=== PATIENT | female | born 1995 | race Two or more races ===

== ENCOUNTER 2020-05-22 16:18 | Inpatient (IN) | payer OTHER ==
--- NOTE | 2020-05-22 17:03 | HP ---
Past Medical History - Admission History of Present Illness: 24 yo @ 38 2/7 wks by first trimester ultrasound, EDC 06/03/2020 complicated by: 1. Covid + ~ 20 wks s/p ID consult, with subsequent negative covid testing 2. Anemia - most recent H/H at 24 wks, 9.6 / 28.0 Patient presents with chief complaint of leakage of clear fluid at 3PM. She denies contractions or vaginal bleeding, endorses movement. She was examined and found to be grossly ruptured and 2 cm dilated. 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: CVA Cardiovascular: No: HTN Pulmonary: Yes: Asthma Gastrointestinal: No: GERD ...: 1 ...Para: 0 ...EDC by Dates: 06/03/20 Heme/Onc: Yes: Anemia - Past Surgical History Hx Myomectomy: No Hx Transabdominal Cerclage: No Additional Surgical History: Jaw surgery Home Medications - Allergies Allergies/Adverse Reactions: Allergies Allergy/AdvReac Type Severity Reaction Status Date / Time No Known Allergies Allergy Verified 05/22/20 17:03 Family Medical History Family History: Denies Review of Systems - Review of Systems Constitutional: reports: No Symptoms HENT: reports: No Symptoms Neck: reports: No Symptoms Cardiovascular: reports: No Symptoms Respiratory: reports: No Symptoms Musculoskeletal: reports: No Symptoms Neurological: reports: No Symptoms Endocrine: reports: No Symptoms Psychiatric: reports: No Symptoms Physical Exam - Maternity Constitutional: Yes: Well Nourished, No Distress, Calm Cardiovascular: Yes: Regular Rate and Rhythm Lungs: Clear to auscultation - Abdominal Exam/OB Presentation: Vertex Contractions: No Heart Rate (range): 155 Category: I Accelerations: Non-Uniform Decelerations: None - Vaginal Exam/OB Vaginal Bleeding: No Dilatation (cm): 2 Effacement (%): 0 Amniotic Membrane Status: Ruptured Nitrazine Test: Positive Amniotic Fluid: Yes: Clear Presentation: Vertex/Position Station: -4 - Physical Exam Edema: No Psychiatric: Yes: Alert, Oriented - Labs Lab Results: PNL: A positive, antibody negative; RPR NR; HIV neg x 2; Hbs ag neg; HCV neg; Hg jeremiah AA; GCT WNL; GBS neg; Seq screen neg ; most recent ultrasound 35 wks 2777g (6 lb 2 oz; 50%ile) Hemorrhage Risk Assessment - Risk Factors Medium Risk Factors: Yes: None High Risk Factors: Yes: None Risk Score: 1 Risk Level: Medium Risk Assessment/Plan 24 yo @ 38+ wks PROM 1. Admit to L&D 2. Routine labs collected and sent, covid swab obtained 3. Discussed PROM, no contractions. Reviewed options: Observation vs pitocin augmentation. Reviewed risk of augmentation including but not limited to intolerance of labor, need for delivery. Discussed risk of infection. She expressed understanding. Desires pitocin augmentation. 4. GBS negative 5. Will offer pain medication upon patient request 6. Currently category I FHT, will monitor 7. Will continue expectant management.
[2020-05-22] MEDS: DEXTROSE 5%-LACTATED RINGERS 1,000 ML IV SCH (17:30)
[2020-05-22 18:17] VITALS: BMI 29.2
[2020-05-22] MEDS ORDERED: OXYTOCIN 30 UNITS in 0.9% NS 30 UNIT/500 ML INFUS.BAG IVPB ONE (18:18)
[2020-05-22] MEDS: OXYTOCIN 30 UNITS in 0.9% NS 30 UNIT/500 ML INFUS.BAG IVPB SCH (18:20)
[2020-05-22 18:22] LABS: BASO % 0.2 % (0-2.0); EOS % 0.4 % (0-4.5); HEMATOCRIT 29.4 % (32.4-45.2); HEMOGLOBIN 9.8 GM/dL (10.7-15.3); LYMPH % 21.2 % (8-40); MCH 28.3 pg (25.7-33.7); MCHC 33.4 g/dl (32.0-36.0); MEAN CELL VOLUME 84.8 fl (80-96); MEAN PLT VOLUME 10.9 fl (7.5-11.1); NEUT % 70.2 % (42.8-82.8); PLATELET COUNT 200 K/MM3 (134-434); RBC 3.47 M/mm3 (3.60-5.2); RDW 14.4 % (11.6-15.6)
[2020-05-22 18:32] LABS: INR 0.96 (0.83-1.09); PROTHROMBIN TIME (PATIENT) 11.3 SEC (9.7-13.0)
[2020-05-22 18:35] LABS: ACTIVATED PTT 24.4 SECONDS (25.2-36.5)
[2020-05-22 18:49] LABS: BLOOD UREA NITROGEN 10.7 mg/dL (7-18); CREATININE 0.6 mg/dL (0.55-1.3); POTASSIUM 4.4 mmol/L (3.5-5.1)
[2020-05-23] MEDS ORDERED: FENTANYL/BUPIVACAINE/NS/PF - PCEA - 50 ML DISP.SYRIN EP ONE (00:17)
[2020-05-23] MEDS ORDERED: PCA PUMP NR ONE (00:18)
[2020-05-23] MEDS ORDERED: NALOXONE HCL 0.4 MG/ML VIAL IVPUSH PRN (00:25)
[2020-05-23] MEDS ORDERED: FENTANYL/BUPIVACAINE/NS/PF - PCEA - 50 ML DISP.SYRIN EP SCH (00:30)
[2020-05-23] MEDS ORDERED: BUPIVACAINE HCL/PF 0.25% (2.5MG/ML) 10 ML VIAL ONE (00:31)
[2020-05-23] MEDS ORDERED: OXYTOCIN 20 UNITS in 0.9% NS 20 UNIT/1,000 ML INFUS.BAG IV ONE ×2 (05:09→07:12)
--- NOTE | 2020-05-23 06:18 | PN ---
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 Weight and length unknown at this time. Head delivered spontaneously, right compound hand noted, nuchal cord noted and reduced, followed by shoulders and body without difficulty. Infant with spontaneous cry and placed on mother's abdomen. Nose and mouth was bulb suctioned. Cord was clamped and cut. Perineum and vagina examined, a second degree laceration was noted and repaired in the usual fashion. Rectal exam revealed no sutures in rectum. Placenta was delivered spontaneously and intact. 20 units of pitocin in 1 L IVF was given. All counts correct x 2. Mother and infant stable in LDR. EBL 300cc.
[2020-05-23] MEDS ORDERED: METHYLERGONOVINE MALEATE 0.2 MG/1 ML AMP IM PRN (06:29)
[2020-05-23] MEDS ORDERED: WITCH HAZEL 50% (TUCKS) 40 PAD/JAR PAD TP PRN (06:29)
[2020-05-23] MEDS ORDERED: oxyCODONE HCL 5 MG TABLET PO PRN (06:29)
[2020-05-23] MEDS ORDERED: BISACODYL 10 MG SUPP.RECT RC PRN (06:29)
[2020-05-23] MEDS ORDERED: BENZOCAINE 20% 57 GM BOTTLE TP PRN (06:29)
[2020-05-23] MEDS ORDERED: BENZOCAINE 28 GM HEMORRHOIDAL OINTMENT TP PRN (06:29)
[2020-05-23] MEDS ORDERED: OXYTOCIN 20 UNITS in 0.9% NS 20 UNIT/1,000 ML INFUS.BAG IV SCH (06:30)
[2020-05-23] MEDS ORDERED: ACETAMINOPHEN 325 MG TABLET (FP) ONE (07:53)
[2020-05-23] MEDS: ACETAMINOPHEN 325 MG TABLET (FP) PO PRN ×3 (07:55→21:38)
[2020-05-23] MEDS: PRENATAL VITAMINS W/ FOLIC ACID TABLET (FP) PO SCH (11:59)
[2020-05-23] MEDS: IBUPROFEN 600 MG TABLET (FP) PO PRN ×2 (14:29→21:37)
[2020-05-23] MEDS: DEXTROSE 5%-LACTATED RINGERS 1,000 ML IV SCH (20:21)
[2020-05-23] MEDS: OXYTOCIN 30 UNITS in 0.9% NS 30 UNIT/500 ML INFUS.BAG IVPB SCH (20:21)
[2020-05-23] MEDS: ELECTROLYTE-148 SOLN 1,000 ML IV SCH (20:21)
[2020-05-24] MEDS: ACETAMINOPHEN 325 MG TABLET (FP) PO PRN ×3 (02:46→20:35)
[2020-05-24] MEDS: PRENATAL VITAMINS W/ FOLIC ACID TABLET (FP) PO SCH (09:22)
[2020-05-24] MEDS: IBUPROFEN 600 MG TABLET (FP) PO PRN (09:40)
[2020-05-24 10:22] LABS: BASO % 0.1 % (0-2.0); EOS % 0.6 % (0-4.5); HEMATOCRIT 23.2 % (32.4-45.2); HEMOGLOBIN 7.5 GM/dL (10.7-15.3); LYMPH % 25.9 % (8-40); MCH 27.3 pg (25.7-33.7); MCHC 32.5 g/dl (32.0-36.0); MEAN CELL VOLUME 84.1 fl (80-96); MEAN PLT VOLUME 10.6 fl (7.5-11.1); MONO % 5.2 % (3.8-10.2); NEUT % 68.2 % (42.8-82.8); PLATELET COUNT 194 K/MM3 (134-434); RBC 2.76 M/mm3 (3.60-5.2); RDW 14.3 % (11.6-15.6); WHITE BLOOD COUNT 12.3 K/mm3 (4.0-10.0)
--- NOTE | 2020-05-24 12:17 | PN ---
Post Progress Note - Subjective Subjective: Patient without acute complaints. Reports tolerating oral intake without nausea or vomiting. Ambulating without dizziness. Denies fevers or chills. Pain well controlled with oral pain medication. Pumping/breast feeding without issue. Passing flatus. Post Day: 1 Type of Delivery: Vital Signs: Vital Signs Temperature 98.1 F 05/24/20 02:00 Pulse Rate 76 05/24/20 02:00 Respiratory Rate 18 05/24/20 02:00 Blood Pressure 116/76 05/24/20 02:00 O2 Sat by Pulse Oximetry (%) 99 05/24/20 02:00 Breast Exam: Yes: Soft Uterus: Yes: Fundus Firm, Fundus below umbilicus, Non-tender Abdomen/GI: Yes: Abdomen soft, Tolerating PO Lochia: Yes: Rubra Lochia, amount: Small Extremities: Yes: Calves non-tender Perineum: Yes: Intact, Laceration Activity: Ambulating - Labs Labs: CBC WBC 12.3 K/mm3 (4.0-10.0) H 05/24/20 09:53 RBC 2.76 M/mm3 (3.60-5.2) L 05/24/20 09:53 Hgb 7.5 GM/dL (10.7-15.3) L 05/24/20 09:53 Hct 23.2 % (32.4-45.2) L D 05/24/20 09:53 MCV 84.1 fl (80-96) 05/24/20 09:53 MCH 27.3 pg (25.7-33.7) 05/24/20 09:53 MCHC 32.5 g/dl (32.0-36.0) 05/24/20 09:53 RDW 14.3 % (11.6-15.6) 05/24/20 09:53 Plt Count 194 K/MM3 (134-434) 05/24/20 09:53 MPV 10.6 fl (7.5-11.1) 05/24/20 09:53 Absolute Neuts (auto) 8.4 K/mm3 (1.5-8.0) H 05/24/20 09:53 Neutrophils % 68.2 % (42.8-82.8) 05/24/20 09:53 Lymphocytes % 25.9 % (8-40) D 05/24/20 09:53 Monocytes % 5.2 % (3.8-10.2) 05/24/20 09:53 Eosinophils % 0.6 % (0-4.5) 05/24/20 09:53 Basophils % 0.1 % (0-2.0) 05/24/20 09:53 Nucleated RBC % 0 % (0-0) 05/24/20 09:53 Assessment/Plan 24o P1 s/p , doing well stable, afebrile. Asymptomatic for anemia. care instructions reviewed. Continue routine care. Ambulation encouraged Discharge instruction reviewed.
--- NOTE | 2020-05-24 12:20 | DS ---
Physical Exam-CHAIN SAW OPERATOR Vital Signs: Vital Signs Temperature 98.1 F 05/24/20 02:00 Pulse Rate 76 05/24/20 02:00 Respiratory Rate 18 05/24/20 02:00 Blood Pressure 116/76 05/24/20 02:00 O2 Sat by Pulse Oximetry (%) 99 05/24/20 02:00 Constitutional: Yes: Well Nourished, No Distress, Calm Eyes: Yes: WNL, Conjunctiva Clear, EOM Intact HENT: Yes: WNL, Atraumatic, Normocephalic Neck: Yes: WNL, Supple, Trachea Midline Cardiovascular: Yes: WNL, Regular Rate and Rhythm Respiratory: Yes: WNL, Regular, CTA Bilaterally Gastrointestinal: Yes: WNL, Normal Bowel Sounds, Soft ...Rectal Exam: Yes: Deferred Renal/: Yes: WNL ....Post : Yes: Uterus firm, Uterus non-tender, Slight lochia rubra Breast(s): Yes: WNL Musculoskeletal: Yes: WNL Extremities: Yes: WNL Edema: Yes Edema: LLE: Trace, RLE: Trace Integumentary: Yes: WNL Neurological: Yes: WNL, Alert, Oriented ...Motor Strength: WNL Psychiatric: Yes: WNL, Alert, Oriented Labs: CBC, BMP 05/24/20 09:53 05/22/20 18:05 Delivery - Delivery Vaginal Delivery: No Problems, Spontaneous Type of Anesthesia: Epidural Episiotomy/Laceration: Midline, 2nd degree EBL (cc): 300 Delivery, Single - Stages of Labor Date 1st Stage Initiatied: 05/23/20 Time 1st Stage Initiated: 00:15 Date 2nd Stage Initiated: 05/23/20 Time 2nd Stage Initiated: 00:15 Date of Delivery: 05/23/20 Time of Delivery: 05:46 Time Placenta Delivered: 06:04 Placenta: Yes: Manual Removal, Normal Configuration - Condition of Actuarial Assistant/Technician Submarine Cable Equipment Present: No Infant Gender: Male Weight: 3.062 kg Position: Right, OA Total Hours ROM (Hrs/Mins): 14 hours 44 minutes - 1 Minute Total Score: 9 5 Minutes Total Score: 9 - Feeding Plan Initial Plan: Exclusive throughout hospitalization Benefits of Exclusively reinforced: Yes Discharge Summary Problems reviewed: Yes Reason For Visit: ADMIT FOR LABOR Spontaneous labor at term Procedures: Principal: KASSIDY Hospital Course: Normal recovery Plan of Treatment: Normal recovery, Goals: Normal recovery Condition: Good - Instructions Diet, Activity, Other Instructions: Physical activity Resume your normal everyday activity as tolerated no heavy lifting or exercise until seen by your surgeon. You may walk unlimited elva of and climb stairs. You may resume driving the car when you feel safe and comfortable behind the wheel. No sexual activity as instructed. Wound care If you have a bandage, leave it on, and keep dry for 48-72 hours. After that time discard the outer bandage. If they are tapes on the skin under the out of b andage leave them in place. They will peel off in the next 7 to 10 days. Do Not Peel them off. You may shower the day after surgery. If there are tapes present on the skin, you may shower over them. Diet There are no dietary restrictions. Eat healthy, high-fiber foods. Drink 6 to 8 glasses of liquid each day. This will assist in keeping your bowels are regular. Pain management You may take Tylenol or acetaminophen or Ibuprofen (for example, Motrin, Advil etc.) from my pain prescription medication is ordered should be taken as prescribed for moderate to severe pain. Call MD for any of the following: Severe pain not relieved by medication Fever of 101 or higher Excessive bleeding or drainage on dressing Inability to urinate Referrals: Topher Lara MD [Staff Physician] - 1 Month Disposition: HOME - Home Medications Comprehensive Discharge Medication List: Ambulatory Orders Pnv No.103/Folic/Om3s/Fish Oil [ Gummies] 1 each PO DAILY 05/22/20
[2020-05-24] MEDS ORDERED: SENNOSIDES/DOCUSATE COMBO (SENNA PLUS) TABLET (UD) PO PRN (22:00)
[2020-05-25] MEDS: ACETAMINOPHEN 325 MG TABLET (FP) PO PRN ×2 (04:07→09:42)
[2020-05-25] MEDS: PRENATAL VITAMINS W/ FOLIC ACID TABLET (FP) PO SCH (09:35)
[2020-05-25] MEDS: IBUPROFEN 600 MG TABLET (FP) PO PRN (09:42)
[2020-05-25 11:44] VITALS: BP 131/87; PULSE 74; TEMP 97.9
[2020-05-25 14:37] LABS: BASO % 0.3 % (0-2.0); EOS % 1.2 % (0-4.5); HEMOGLOBIN 7.6 GM/dL (10.7-15.3); LYMPH % 19.1 % (8-40); MCH 27.8 pg (25.7-33.7); MCHC 32.9 g/dl (32.0-36.0); MEAN CELL VOLUME 84.5 fl (80-96); MEAN PLT VOLUME 10.7 fl (7.5-11.1); MONO % 6.6 % (3.8-10.2); NEUT % 72.8 % (42.8-82.8); PLATELET COUNT 208 K/MM3 (134-434); RBC 2.72 M/mm3 (3.60-5.2); RDW 14.3 % (11.6-15.6); WHITE BLOOD COUNT 11.1 K/mm3 (4.0-10.0)
== END 2020-05-25 16:35 | disposition home or self-care (01) | DRG 807 ==
LOC: JLDR 16:18 → J3W 05-23 08:15
PROVIDERS: ADMIT Obstetrics & Gynecology; ATTEND Obstetrics & Gynecology
PROC: 10E0XZZ Delivery of Products of Conception, External Approach (ICD-10-PCS; principal; 2020-05-23)
PROC: 0KQM0ZZ Repair Perineum Muscle, Open Approach (ICD-10-PCS; 2020-05-23)
DX: O42.02 Full-term premature rupture of membranes, onset of labor within 24 hours of rupture (principal); Z37.0 Single live birth; O69.81X0 Labor and delivery complicated by cord around neck, without compression, not applicable or unspecified; O70.1 Second degree perineal laceration during delivery; O99.02 Anemia complicating childbirth; D64.9 Anemia, unspecified; Z3A.38 38 weeks gestation of pregnancy; Z87.09 Personal history of other diseases of the respiratory system; Z86.19 Personal history of other infectious and parasitic diseases
CPT/HCPCS: 36415; 59409; 80048; 85025; 85610; 85730; 86780; 86850; 86900; 86901; U0003

== ENCOUNTER 2021-06-08 10:03 | Emergency (ER) | payer OTHER ==
[2021-06-08 10:10] VITALS: BP 136/90; PULSE 93; TEMP 99.9; BMI 20.5
[2021-06-08] MEDS ORDERED: ACETAMINOPHEN 500 MG TABLET (FP) PO ONE (10:50)
== END 2021-06-08 11:57 | disposition home or self-care (01) ==
LOC: JER 10:03
DX: J20.9 Acute bronchitis, unspecified (principal)
CPT/HCPCS: 71046-TC-FY; 93005; 93010; 99284-25

== ENCOUNTER 2023-06-11 04:56 | Day surgery (SDC) | payer OTHER ==
[2023-06-08 10:33] VITALS: BMI 25.3
[~2023-06-11 04:56] MED LIST: ceFAZolin SODIUM 1 GM VIAL IVPB ONE
[2023-06-11 14:44] LABS: INR 1.15 (0.83-1.09); PROTHROMBIN TIME (PATIENT) 13.3 SEC (9.7-13.0)
[2023-06-11 14:45] LABS: BASO % 0.1 % (0-2.0); EOS % 0.3 % (0-4.5); HEMOGLOBIN 11.5 GM/dL (10.7-15.3); LYMPH % 26.8 % (8-40); MCH 28.3 pg (25.7-33.7); MEAN CELL VOLUME 83.2 fl (80-96); MEAN PLT VOLUME 8.8 fl (7.5-11.1); MONO % 7.3 % (3.8-10.2); NEUT % 65.5 % (42.8-82.8); PLATELET COUNT 266 10^3/uL (134-434); RBC 4.08 M/mm3 (3.60-5.2); RDW 12.8 % (11.6-15.6); WHITE BLOOD COUNT 9.8 K/mm3 (4.0-10.0)
[2023-06-11 14:48] LABS: ACTIVATED PTT 28.1 SECONDS (25.2-36.5)
[2023-06-11 14:53] LABS: POTASSIUM 4.1 mmol/L (3.5-5.1)
[2023-06-11 14:55] LABS: CALCIUM 9.2 mg/dL (8.5-10.1)
[2023-06-11 14:56] LABS: ALBUMIN 3.8 g/dl (3.4-5.0); BLOOD UREA NITROGEN 10.3 mg/dL (7-18)
[2023-06-11 14:59] LABS: CREATININE 0.6 mg/dL (0.55-1.3)
[2023-06-11 15:00] LABS: TOT PROT 7.4 g/dl (6.4-8.2)
[2023-06-11 15:01] LABS: BILIRUBIN,TOTAL 0.5 mg/dL (0.2-1)
[2023-06-11] MEDS ORDERED: PROPOFOL 40 ML ONE (15:54)
[2023-06-11] MEDS ORDERED: MIDAZOLAM HCL 2 MG/2 ML SINGLE DOSE VIAL ONE (15:54)
[2023-06-11] MEDS ORDERED: ceFAZolin SODIUM 1 GM VIAL IVPB ONE (16:10)
[2023-06-11] MEDS ORDERED: ONDANSETRON 4 MG/2 ML VIAL IVPUSH PRN (16:28)
[2023-06-11] MEDS ORDERED: oxyCODONE HCL 5 MG TABLET PO PRN (16:28)
[2023-06-11] MEDS ORDERED: LACTATED RINGERS SOLUTION 1,000 ML IV SCH (16:30)
[2023-06-11 18:41] VITALS: BP 130/70; PULSE 78; RESP 20; TEMP 97.8
== END 2023-06-11 18:30 | disposition home or self-care (01) ==
LOC: JASU-SURG 04:56
PROVIDERS: ATTEND Obstetrics & Gynecology
PROC: 10D17ZZ Extraction of Products of Conception, Retained, Via Natural or Artificial Opening (ICD-10-PCS; principal; 2023-06-11 14:30)
DX: O02.1 Missed abortion (principal)
CPT/HCPCS: 36415; 80053; 85025; 85610; 85730; 86850; 86900; 86901; 88305-TC; 94760